=== PATIENT | male | born 1970 | race Asian ===

== ENCOUNTER → 2016-09-21 | Outpatient (CLI) | payer OTHER ==
[2016-09-21 10:21] LABS: BASOPHIL % 0.8 % (0-2); PLATELET COUNT 325 x10^3mcL (130-400)
[2016-09-21 10:41] LABS: ALKALINE PHOSPHATASE 62 U/L (46-116); ALT/SGPT 59 U/L (16-63); AST/SGOT 34 U/L (15-37); BILIRUBIN TOTAL 0.35 mg/dL (0.20-1.00); CALCIUM 8.5 mg/dL (8.5-10.1); CARBON DIOXIDE 28.7 mmol/L (21-32); CHLORIDE SERUM 105 mmol/L (98-107); CHOLESTEROL 165 mg/dL (<200); FREE T4 0.84 ng/dL (0.76-1.46); GFR1 > 60 mL/min; GLUCOSE SERUM 96 mg/dL (74-106); POTASSIUM SERUM 4.4 mmol/L (3.5-5.1); SODIUM SERUM 141 mmol/L (136-145); TOTAL PROTEIN, SERUM 7.6 g/dL (6.4-8.2); TRIGLYCERIDES 89 mg/dL (<150)
[2016-09-21 10:48] LABS: HDL CHOLESTEROL 33 mg/dL (40-60)
[2016-09-21 11:09] LABS: RED CELL DISTRIBUTION WIDTH 15.4 % (11.5-14.5)
== END | disposition home or self-care (01) ==
LOC: LB 09:03
DX: M79.672 Pain in left foot (principal); M54.9 Dorsalgia, unspecified; E03.9 Hypothyroidism, unspecified; D50.9 Iron deficiency anemia, unspecified; R42 Dizziness and giddiness; E78.4 Other hyperlipidemia
CPT/HCPCS: 84439

== ENCOUNTER → 2016-10-13 | Outpatient (CLI) | payer OTHER | END | disposition home or self-care (01) | LOC: LB 16:24 | DX: K21.9 Gastro-esophageal reflux disease without esophagitis (principal) ==

== ENCOUNTER 2017-12-12 09:58 | Emergency (ER) | payer OTHER ==
[~2017-12-12] VITALS: Ht 160 cm; Wt 76.7 kg
[2017-12-12 10:04] VITALS: Ht 160 cm; Wt 76.7 kg
[2017-12-12 11:55] VITALS: BP 111/68
== END 2017-12-12 11:55 | disposition home or self-care (01) ==
LOC: ED 09:58
DX: M75.31 Calcific tendinitis of right shoulder (principal); I10 Essential (primary) hypertension; E78.00 Pure hypercholesterolemia, unspecified

== ENCOUNTER → 2018-02-15 | Outpatient (CLI) | payer OTHER ==
[2018-02-15 10:58] LABS: BASOPHIL % 1.1 % (0-2); PLATELET COUNT 366 x10^3mcL (130-400)
[2018-02-15 11:01] LABS: RED CELL DISTRIBUTION WIDTH 15.5 % (11.5-14.5)
[2018-02-15 11:05] LABS: rbc morphology (normal/abnorm) ABNORMAL (NORMAL)
[2018-02-15 11:23] LABS: ALBUMIN 4.1 g/dL (3.4-5.0); ALKALINE PHOSPHATASE 66 U/L (46-116); ALT/SGPT 59 U/L (16-63); AST/SGOT 25 U/L (15-37); BILIRUBIN TOTAL 0.22 mg/dL (0.20-1.00); CALCIUM 8.4 mg/dL (8.5-10.1); CARBON DIOXIDE 30.8 mmol/L (21-32); CHLORIDE SERUM 103 mmol/L (98-107); CHOLESTEROL 164 mg/dL (<200); CREATININE SERUM 1.1 mg/dL (0.7-1.3); GFR1 > 60 mL/min; GLUCOSE SERUM 97 mg/dL (74-106); POTASSIUM SERUM 4.1 mmol/L (3.5-5.1); SODIUM SERUM 140 mmol/L (136-145); TOTAL PROTEIN, SERUM 7.9 g/dL (6.4-8.2); TRIGLYCERIDES 85 mg/dL (<150)
[2018-02-15 11:24] LABS: CHOLESTEROL/HDL RATIO 5.1; HDL CHOLESTEROL 32 mg/dL (40-60)
[2018-02-16 05:27] LABS: VITAMIN D 25-HYDROXY 33.8 ng/mL (30.0-100.0)
== END | disposition home or self-care (01) ==
LOC: LB 10:20
DX: Z00.01 Encounter for general adult medical examination with abnormal findings (principal); I10 Essential (primary) hypertension; E78.5 Hyperlipidemia, unspecified

== ENCOUNTER → 2018-03-28 | Outpatient (CLI) | payer OTHER | END | disposition home or self-care (01) | LOC: MI 12:10 | PROC: BP38ZZZ Magnetic Resonance Imaging (MRI) of Right Shoulder (ICD-10-PCS; principal; 2018-03-28) | DX: M75.41 Impingement syndrome of right shoulder (principal); Z71.9 Counseling, unspecified ==

== ENCOUNTER → 2018-05-22 | Outpatient (CLI) | payer OTHER | END | disposition home or self-care (01) | LOC: LB 16:05 | DX: E78.5 Hyperlipidemia, unspecified (principal); M75.31 Calcific tendinitis of right shoulder ==

== ENCOUNTER → 2019-02-20 | Outpatient (CLI) | payer OTHER ==
[2019-02-20 17:56] LABS: T4(THYROXINE) 6.3 ug/dL (4.7-13.3); URIC ACID 4.6 mg/dL (3.5-7.2)
[2019-02-22 09:09] LABS: RHEUMATOID ARTHRITIS FACTOR <10.0 IU/mL (0.0-13.9)
== END | disposition home or self-care (01) ==
LOC: LB 16:13
DX: I10 Essential (primary) hypertension (principal); E78.5 Hyperlipidemia, unspecified; E55.9 Vitamin D deficiency, unspecified
CPT/HCPCS: 86431